=== PATIENT | male | born 1965 | race American Indian/Alaskan Native ===

== ENCOUNTER 2020-07-12 10:50 | Emergency (ER) | payer MEDICAID ==
--- NOTE | 2020-07-12 13:17 | Event Note ---
ED Screening Note ED Screening Note: pt present for RLE edema and pain that began a month ago and worsened states he believes he may have gotten bit by something while cutting grass states has weeping of the leg never had before PMHx depression no allergies to meds This initial assessment/diagnostic orders/clinical plan/treatment(s) is/are subject to change based on patients health status, clinical progression and re- assessment by fellow clinical providers in the ED. Further treatment and workup at subsequent clinical providers discretion. Patient/guardian urged not to elope from the ED as their condition may be serious if not clinically assessed and managed. Initial orders include: labs, US
--- NOTE | 2020-07-12 14:28 | Vascular Lab Report ---
. DUPLEX DOPPLER LOWER EXTREMITY VEINS, RIGHT INDICATION / CLINICAL INFORMATION: RLE edema. TECHNIQUE: Duplex doppler imaging was performed through the veins of the right lower extremity using venous comp ression and other maneuvers. COMPARISON: None available. FINDINGS: RIGHT COMMON FEMORAL VEIN: Negative. RIGHT FEMORAL VEIN: Negative. RIGHT POPLITEAL VEIN: Negative. RIGHT CALF VEINS: Negative. ADDITIONAL FINDINGS: There is an enlarged right inguinal lymph node with normal fatty hilum. IMPRESSION: 1. No sonographic evidence for DVT in the right lower extremity. 2. Enlarged normal morphology right inguinal lymph node, may be reactive to infectious or inflammator y process in the right lower extremity. Signer Name: Roberto Smith MD Signed: 07/12/2020 2:23 PM Workstation Name: [id number]
[2020-07-12 15:36] LABS: Basophils % (Auto) 0.4 % (0.0-1.8); Eosinophils # (Auto) 0.4 K/mm3 (0.0-0.4); Eosinophils % (Auto) 4.9 % (0.0-4.3); Hematocrit 36.8 % (35.5-45.6); Hemoglobin 12.4 gm/dl (11.8-15.2); Lymphocytes # (Auto) 1.8 K/mm3 (1.2-5.4); Lymphocytes % (Auto) 23.3 % (13.4-35.0); Mean Corpuscular HGB Conc 34 % (32-34); Mean Corpuscular Volume 92 fl (84-94); Monocytes # (Auto) 0.9 K/mm3 (0.0-0.8); Monocytes % (Auto) 11.5 % (0.0-7.3); Platelet Count 327 K/mm3 (140-440); Red Cell Distribution Width 13.5 % (13.2-15.2)
[2020-07-12 16:02] LABS: Alanine Aminotransferase 10 units/L (7-56); Albumin 3.9 g/dL (3.9-5); BUN/Creatinine Ratio 16; Blood Urea Nitrogen 14 mg/dL (9-20); Calcium 9.1 mg/dL (8.4-10.2); Hemolysis Index 14
[2020-07-12] MEDS ORDERED: HYDROcodone/ACETAMINOPHEN 5-325 MG TAB PO ONE (19:11)
--- NOTE | 2020-07-12 19:39 | Emergency Department Report ---
ED General Adult HPI - General Chief complaint: Extremity Injury, Lower Stated complaint: RT LEG PAIN/SORE Time Seen by Provider: 07/12/20 13:12 Source: patient Mode of arrival: Ambulatory Limitations: No Limitations - History of Present Illness Initial comments: pt presents for RLE edema and pain that began a month ago and had worsened over the past 2 weeks with erythema and weeping, states he believes he may have gotten bit by something while cutting grass states has weeping of the leg, no hx of vascular disease, no htn, no chf, no fall , injury, or trauma, endorses hx of depression, nkda. - Related Data Previous Rx's Medication Instructions Recorded Last Taken Type Clindamycin [Clindamycin CAP] 300 mg PO Q8H 10 Days #30 cap 07/12/20 Unknown Rx Mupirocin [Bactroban 2% OINT] 1 applic TP TID #1 tube 07/12/20 Unknown Rx traMADoL [Ultram] 50 mg PO Q6HR PRN #12 tablet 07/12/20 Unknown Rx ED Review of Systems ROS: Stated complaint: RT LEG PAIN/SORE Other details as noted in HPI Constitutional: denies: chills, fever Eyes: denies: eye pain, eye discharge, vision change ENT: denies: ear pain, throat pain Respiratory: denies: cough, shortness of breath, wheezing Cardiovascular: denies: chest pain, palpitations Endocrine: no symptoms reported Gastrointestinal: denies: abdominal pain, nausea, vomiting, diarrhea Genitourinary: denies: urgency, dysuria Musculoskeletal: other (LLE pain swelling ) Skin: other (LLE erythema , weeping , swelling ) Neurological: denies: headache, weakness, paresthesias Psychiatric: denies: anxiety, depression Hematological/Lymphatic: denies: easy bleeding, easy bruising ED Past Medical Hx - Past Medical History Previous Medical History?: No - Surgical History Past Surgical History?: No - Social History Smoking Status: Current Every Day Smoker Substance Use Type: None - Medications Home Medications: Home Medications Medication Instructions Recorded Confirmed Last Taken Type Clindamycin [Clindamycin CAP] 300 mg PO Q8H 10 Days #30 cap 07/12/20 Unknown Rx Mupirocin [Bactroban 2% OINT] 1 applic TP TID #1 tube 07/12/20 Unknown Rx traMADoL [Ultram] 50 mg PO Q6HR PRN #12 tablet 07/12/20 Unknown Rx ED Physical Exam - General Limitations: No Limitations General appearance: alert, in no apparent distress - Head Head exam: Present: atraumatic, normocephalic - Eye Eye exam: Present: normal appearance - ENT ENT exam: Present: mucous membranes moist - Neck Neck exam: Present: normal inspection, full ROM. Absent: tenderness - Respiratory Respiratory exam: Present: normal lung sounds bilaterally. Absent: respiratory distress, wheezes, stridor, chest wall tenderness - Cardiovascular Cardiovascular Exam: Present: regular rate, normal rhythm, normal heart sounds. Absent: systolic murmur, diastolic murmur, rubs, gallop - GI/Abdominal GI/Abdominal exam: Present: soft, normal bowel sounds. Absent: distended, tenderness, guarding, rebound, rigid, bruit, hernia - Rectal Rectal exam: Present: deferred - Extremities Exam Extremities exam: Present: full ROM, tenderness, normal capillary refill, pedal edema. Absent: calf tenderness - Expanded Lower Extremity Exam Right Lower Leg exam: Present: full ROM, tenderness, swelling, erythema. Absent: crepidus, palpable cord, Tracey's sign Ankle exam: Present: normal inspection, full ROM, swelling. Absent: tenderness Foot/Toe exam: Present: normal inspection, full ROM, swelling. Absent: tenderness Neuro vascular tendon exam: Absent: pulse deficit, motor deficit, sensory deficit, tendon deficit Gait: Positive: observed and normal - Back Exam Back exam: Present: normal inspection, full ROM. Absent: tenderness - Neurological Exam Neurological exam: Present: alert, oriented X3, CN II-XII intact, normal gait, reflexes normal. Absent: motor sensory deficit - Psychiatric Psychiatric exam: Present: normal affect, normal mood - Skin Skin exam: Present: dry, intact, erythema (LLE ) ED Course Vital Signs 07/12/20 07/12/20 11:13 19:57 Temperature 98.6 F 98.8 F Pulse Rate 68 57 L Respiratory 18 14 Rate Blood Pressure 141/77 149/69 O2 Sat by Pulse 100 100 Oximetry ED Medical Decision Making - Lab Data Result diagrams: 07/12/20 15:14 07/12/20 15:14 Labs 07/12/20 07/12/20 07/12/20 15:14 15:14 15:14 WBC 7.6 RBC 4.00 Hgb 12.4 Hct 36.8 MCV 92 MCH 31 MCHC 34 RDW 13.5 Plt Count 327 Lymph % (Auto) 23.3 [place] % (Auto) 11.5 H Eos % (Auto) 4.9 H Baso % (Auto) 0.4 Lymph # (Auto) 1.8 [place] # (Auto) 0.9 H Eos # (Auto) 0.4 Baso # (Auto) 0.0 Seg Neutrophils % 59.9 Seg Neutrophils # 4.6 Sodium 139 Potassium 4.3 Chloride 103.3 Carbon Dioxide 28 Anion Gap 12 BUN 14 Creatinine 0.9 Estimated GFR > 60 BUN/Creatinine Ratio 16 Glucose 133 H Lactic Acid 0.50 L Calcium 9.1 Total Bilirubin 0.20 AST 16 ALT 10 Alkaline Phosphatase 105 Total Protein 7.0 Albumin 3.9 Albumin/Globulin Ratio 1.3 - Radiology Data Radiology results: report reviewed, image reviewed Findings Reporting MD: Roberto Smith Dictation Time: July 12, 2020 13:23 Manager Cosmetic: Not available Movie Theater Manager Date: . DUPLEX DOPPLER LOWER EXTREMITY VEINS, RIGHT INDICATION / CLINICAL INFORMATION: RLE edema. TECHNIQUE: Duplex doppler imaging was performed through the veins of the right lower extremity using venous compression and other maneuvers. COMPARISON: None available. FINDINGS: RIGHT COMMON FEMORAL VEIN: Negative. RIGHT FEMORAL VEIN: Negative. RIGHT POPLITEAL VEIN: Negative. RIGHT CALF VEINS: Negative. ADDITIONAL FINDINGS: There is an enlarged right inguinal lymph node with normal fatty hilum. IMPRESSION: 1. No sonographic evidence for DVT in the right lower extremity. 2. Enlarged normal morphology right inguinal lymph node, may be reactive to infectious or inflammatory process in the right lower extremity. Signer Name: Roberto Smith MD Signed: 07/12/2020 1:23 PM Workstation Name: [id number] - Medical Decision Making US Normal no DVT , labs normal, pain is improved with medications given in ed, pt will be dc'd to home in stable condition at this time. pt is ambulatory with steady gait, dc'd in stable condition at this time. Critical care attestation.: If time is entered above; I have spent that time in minutes in the direct care of this critically ill patient, excluding procedure time. ED Disposition Clinical Impression: Cellulitis Qualifiers: Site of cellulitis: extremity Site of cellulitis of extremity: lower extremity Laterality: right Qualified Code(s): L03.115 - Cellulitis of right lower limb Disposition: DC-01 TO HOME OR SELFCARE Is pt being admited?: No Does the pt Need Aspirin: No Condition: Stable Instructions: Cellulitis, Adult Prescriptions: Mupirocin [Bactroban 2% OINT] 1 applic TP TID #1 tube Clindamycin [Clindamycin CAP] 300 mg PO Q8H 10 Days #30 cap traMADoL [Ultram] 50 mg PO Q6HR PRN #12 tablet PRN Reason: Pain Referrals: RADHA STEVENSON MD [Staff Physician] - 3-5 Days
[2020-07-12 20:05] VITALS: BP 149/69
== END 2020-07-12 23:40 | disposition home or self-care (01) ==
LOC: ED 10:50
DX: L03.115 Cellulitis of right lower limb (principal); F17.200 Nicotine dependence, unspecified, uncomplicated; Z79.899 Other long term (current) drug therapy
CPT/HCPCS: 36415; 80053; 82140; 85025; 87040; 96365